=== PATIENT | female | born 1985 | race Caucasian/White ===

== ENCOUNTER → 2018-05-18 | Outpatient (REF) | payer OTHER ==
[2018-05-18 15:51] LABS: PLATELET COUNT, AUTOMATED 412 10^3/uL (150-450)
[2018-05-18 15:53] LABS: COLLAGEN EPINEPHRINE 112 SECONDS (74-162)
[2018-05-18 15:54] LABS: CONTROL LINE HCG INT CTR LINE PRESENT; HCG, SERUM QUALITATIVE NEGATIVE (NEGATIVE)
[2018-05-18 15:57] LABS: INR 1.11; PROTHROMBIN TIME 14.4 SECONDS (12.1-14.4)
[2018-05-18 15:58] LABS: PARTIAL THROMBOPLASTIN TIME 37.3 SECONDS (25.4-37.6)
== END ==
LOC: M LABDRAW1 15:32
DX: M47.26 Other spondylosis with radiculopathy, lumbar region (principal)